=== PATIENT | male | born 1975 ===

== ENCOUNTER → 2021-07-15 | Day surgery (SDC) | payer OTHER | END | disposition home or self-care (01) | LOC: ADM 07-14 12:15 → AMB-ENDOS 06:30 | PROVIDERS: ATTEND Surgery | DX: K63.5 Polyp of colon (principal); K64.8 Other hemorrhoids; Z20.822 Contact with and (suspected) exposure to COVID-19; Z12.11 Encounter for screening for malignant neoplasm of colon ==